=== PATIENT | male | born 1970 | race Caucasian/White ===

== ENCOUNTER → 2016-09-21 | Outpatient (CLI) | payer BC ==
[~2016-09-21] MED LIST: MULT-506
--- NOTE | 2016-09-21 11:35 | DIAGNOSTIC IMAGING REPORT ---
(TESTICULAR) SCROTUM-CONT CLINICAL HISTORY: N50.811 right testicular pain COMPARISON STUDY: No previous studies for comparison. FINDINGS: The right testis measures 53 x 31 x 30 mm. The left testis measures 65 x 34 x 29 mm. No intratesticular masses are visualized. There is no evidence of testicular torsion. There are no findings to indicate epididymitis. There is a trace right-sided hydrocele. IMPRESSION: 1. No evidence of intratesticular mass 2. No evidence of testicular torsion. Electronically signed by: Beka Cordova M.D. 09/21/2016 11:33 AM Dictated Date/Time: 09/21/2016 11:33 AM
== END | disposition home or self-care (01) ==
LOC: C.ULTR 10:52
PROVIDERS: ATTEND Family Medicine
DX: N50.811 Right testicular pain (principal)

== ENCOUNTER 2021-11-13 09:45 | Inpatient (IN) ==
[2021-11-13] MEDS ORDERED: HYDROmorphone INJ 1 MG/ML SYRINGE IV STA (11:10)
[2021-11-13] MEDS ORDERED: dexAMETHasone**PF** 10 MG/ML VIAL IV ONE (11:10)
[2021-11-13] MEDS ORDERED: diazePAM 5 MG TABLET PO ONE ×2 (11:10→13:25)
[2021-11-13] MEDS ORDERED: KETOROLAC 30 MG/ML VIAL IV STA (11:10)
--- NOTE | 2021-11-13 11:13 | Emergency Department Note ---
Impression & Plan Acute radicular low back pain, Intractable back pain, Protrusion of lumbar intervertebral disc ED Provider Note CHIEF COMPLAINT: Right hip pain radiating into the right leg x1 week HISTORY OF PRESENT ILLNESS: Patient is a 51-year-old male who returns to the emergency department, this time by ambulance, for evaluation of right-sided hip/buttock pain radiating into the right leg. He was seen and evaluated here 6 days ago for the same complaint. He had slipped in the garden a day or so juan david or, which is what he thought was causing his symptoms. He was treated in the emergency department with IM Toradol and Decadron and discharged home on prednisone and oxycodone. He has completed the prednisone and has no additional oxycodone left, and his symptoms are getting worse. He is also tried ice and heat, Tylenol and Aleve for his symptoms. He complains primarily of a pain in the lateral aspect of the right hip that radiates toward the groin. At then radiates down the anterior thigh and to the top of his foot. He reports numbness in his foot and burning in his ankle, and some decrease sensation in the right thigh. He felt a tearing sensation in the right groin earlier today. He currently rates his discomfort an 8/10. Patient's reports that he was yelling and screaming in pain this morning. She had him in the car was going to try to bring him here by private vehicle but ultimately they elected to come by ambulance. He denies any bowel or bladder incontinence, but does report that it is difficult to sit on the toilet and has not had a bowel movement this week. He reports some numbness in his testicle region. He has never had the back evaluated previously. REVIEW OF SYSTEMS: Review of systems as per HPI. All other systems reviewed were negative. 10 systems reviewed. PMH: Electronic medical records are reviewed and summarized as above/below. See Problem List. Patient admittedly does not go to the doctor frequently however, does not have regular wellness exams. Sees [facility]. SOCIAL HISTORY: Patient lives at home with his family. He is employed in maintenance at [employer]. PHYSICAL EXAM: Vital Signs: Reviewed Nurse's notes. CONSTITUTIONAL: Patient is an overweight 51-year-old male who is awake and alert and in obvious distress due to his stated complaint. He is lying right lateral decubitus in the gurney. is at the bedside. There is significant discomfort with position changes. CARDIOVASCULAR: Regular rate and rhythm. Peripheral pulses easily palpable. RESPIRATORY: Breath sounds equal and clear to auscultation. ABDOMEN: Bowel sounds are present. Abdomen is soft, nontender and nondistended. INTEGUMENTARY: No lesions or rash, normal skin turgor. LYMPH: No lymphadenopathy. SPINE: Examination of the patient's back does not demonstrate any ecchymosis, abrasions or outward signs of trauma. No erythema, increased warmth or induration. Patient has no midline discomfort to palpation over lumbar spinous processes. There is no pain over the SI joint or the sciatic notch. He has increased pain with range of motion including rotation and flexion. EXTREMITIES: Leg lengths are symmetrical. Negative logroll bilaterally. He has decreased sensation to light touch over the right lower extremity when compared to the left. His strength to right ankle and great toe dorsiflexion/plantarflexion is 3/5, compared to 5/5 on the left. Positive right-sided straight leg raise testing. Patellar reflexes are 1+ bilaterally. EMERGENCY DEPARTMENT COURSE: The patient was seen and assessed as above. Old records were reviewed. He presents the emergency department for evaluation of severe right-sided lumbar radiculopathy. He has completed a course of steroids and his symptoms are worsening. He had minimal relief with oxycodone over the last week. IV lock was initiated. He was treated with Dilaudid 1 mg, Toradol 30 mg, Decadron 10 mg IV with Valium 5 mg p.o. CBC, BMP and urinalysis were ordered. Discussed performing an MRI with the patient. Ultimately, he was able to do so. He did need an additional dose of Dilaudid 0.5 mg and Valium 5 mg p.o. at MRI to complete the studies. Labs are unremarkable. MRI is concerning for disc protrusion at the L4-L5 level resulting in severe r ight-sided neuroforaminal stenosis. I was able to review the patient's MRI findings with orthopedic spine surgery, Dr. Alcantara. He would like to evaluate the patient and review the MRI tomorrow. He felt that admission for pain management was reasonable. I did discuss the MRI findings and recommendations with the patient and his and they were in agreement. Patient is feeling much improved with the medications that he received, he rated his discomfort a 4/10. Consultation was placed with the [facility] hospitalist group for further care and management. A COVID swab was obtained for admitting purposes. Differential diagnoses entertained included disc herniation, lumbar radiculo alejandrina, spinal stenosis, acute cord compression, spinous syndrome, epidural abscess, hematoma, discitis, among others. Past Med/Surg History Medical History No acute medical problems Surgical History No pertinent past surgical history Social History Smoking Status: Never smoker Preferred Language: French Feels Safe at Home: Yes Allergies Allergies Allergy/AdvReac Type Severity Reaction Status Date / Time No Known Allergies Allergy NKA Unverified 11/07/21 23:21 Home Meds Previous Rx's Medication Instructions Recorded oxycodone 5 mg tablet 5 mg PO Q6H PRN pain #10 tabs 11/07/21 Results & Data (ED) Vital Signs Vital Signs - 24 hr 11/13/21 09:49 11/13/21 11:29 11/13/21 12:18 Temperature 36.8 C Temperature Source Oral Pulse Rate 69 Pulse Rate [Left Finger] 86 63 Pulse Rhythm Regular Pulse Rhythm [Left Finger] Regular Pulse Strength Normal Pulse Strength [Left Finger] Normal Respiratory Rate 19 20 20 Respiratory Effort / Characteristics Non-Labored Non-Labored Spontaneous Non-Labored Spontaneous Respiratory Depth Normal Normal Normal Respiratory Pattern Regular Blood Pressure 145/83 H Blood Pressure [Right Arm] 139/85 Blood Pressure Mean 103 Blood Pressure Mean [Right Arm] 103 Blood Pressure Position Lying Blood Pressure Position [Right Arm] Pulse Oximetry 98 98 92 Oxygen Delivery Method Room Air Room Air Room Air Sepsis Recent Fever Within 48 Hours No Sepsis New/Unexplained Change in Mental Status No Sepsis Action Taken by Nursing No Action Required 11/13/21 14:05 Temperature Temperature Source Pulse Rate Pulse Rate [Left Finger] 70 Pulse Rhythm Pulse Rhythm [Left Finger] Regular Pulse Strength Pulse Strength [Left Finger] Normal Respiratory Rate 20 Respiratory Effort / Characteristics Non-Labored Spontaneous Respiratory Depth Normal Respiratory Pattern Blood Pressure Blood Pressure [Right Arm] 142/78 H Blood Pressure Mean Blood Pressure Mean [Right Arm] 99 Blood Pressure Position Blood Pressure Position [Right Arm] Lying Pulse Oximetry 92 Oxygen Delivery Method Room Air Sepsis Recent Fever Within 48 Hours Sepsis New/Unexplained Change in Mental Status Sepsis Action Taken by Intermediate Medications Current Medication List: was personally reviewed by me Laboratory Data Attestation: I reviewed the patient's lab results. Result diagrams: 11/13/21 11:27 11/13/21 11:27 Lab Results 11/13/21 11/13/21 Range/Units 11: 11: WBC 12.19 H (4.8-10.8) K/ul RBC 5.45 (4.63-6.08) M/uL Hgb 16.6 (14.0-18.0) g/dl Hct 48.1 (40.1-51.0) % MCV 88.3 (80.0-100.0) fL MCH 30.5 (25.0-34.0) pg MCHC 34.5 (32.0-36.0) g/dL RDW Std Deviation 41.1 (36.4-46.3) fL RDW Coeff of Bianca 12.8 (11.5-14.5) % Plt Count 243 (130-400) K/uL MPV 10.4 (9.4-12.4) fL Sodium 138 (136-145) mmol/L Potassium 4.0 (3.5-5.1) mmol/L Chloride 98 (98-107) mmol/L Carbon Dioxide 31 (21-32) mmol/L Anion Gap 9 (3-11) BUN 21 (6-23) mg/dl Creatinine 0.96 (0.6-1.4) mg/dl Est Cr Clr Drug Dosing 144.0 ml/min Est GFR ( Amer) 104.2 ml/min Est GFR (Non-Af Amer) 89.9 ml/min BUN/Creatinine Ratio 21.9 H (10-20) Glucose 102 H (70-99(Fasting)) mg/dl Calcium 9.7 (8.5-10.1) mg/dl Administered Medications Discontinued Medications Dexamethasone Sodium Phosphate (DexamethasonePf 10 Mg/Ml Vial) 10 mg IV NOW ONE Stop: 11/13/21 11:11 Last Admin: 11/13/21 11:21 Dose: 10 mg Documented By: TW Diazepam (Diazepam 5 Mg Tablet) 5 mg PO NOW ONE Stop: 11/13/21 11:11 Last Admin: 11/13/21 11:21 Dose: 5 mg Documented By: TW Diazepam (Diazepam 5 Mg Tablet) 5 mg PO NOW ONE Stop: 11/13/21 13:26 Last Admin: 11/13/21 14:05 Dose: 5 mg Documented By: TW Hydromorphone HCl (Hydromorphone Inj 1 Mg/Ml Syringe) 1 mg IV NOW STA Stop: 11/13/21 11:11 Last Admin: 11/13/21 11:22 Dose: 1 mg Documented By: TW Hydromorphone HCl (Hydromorphone Inj 0.5 Mg/0.5 Ml Syr) 0.5 mg IV NOW STA Stop: 11/13/21 13:26 Last Admin: 11/13/21 13:48 Dose: 0.5 mg Documented By: TW Ketorolac Tromethamine (Ketorolac 30 Mg/Ml Vial) 30 mg IV NOW STA Stop: 11/13/21 11:11 Last Admin: 11/13/21 11:21 Dose: 30 mg Documented By: KAMAR Imaging Data Attestation: I personally reviewed and interpreted this imaging study as follows: Radiologist's Impression: Lumbar Spine MRI 11/13/21 11:11 MR lumbar spine wo con CLINICAL HISTORY: 51 years-old Male with RIGHT LUMBAR RADICULOPATHY. Acute low back pain with numbness and tingling of the right lower extremity COMPARISON: None. TECHNIQUE: Multiplanar, multi sequence MRI of the lumbar spine was performed without intravenous contrast. FINDINGS: It Network Architect localizer images demonstrate no gross extraspinal abnormality. Study is motion degraded. Imaged paraspinal and imaged intra-abdominal structures appear unremarkable. Conus medullaris terminates at the L1 level. No acute fracture, subluxation, endplate erosion or marrow replacing process identified. Minimal soft tissue edema adjacent to the L4-L5 facets, likely degenerative. There is mostly mild multilevel disc space narrowing and spondylitic spurring with [id number] facet arthrosis. T12-L1: No central canal or neural foraminal stenosis. L1-L2: No central canal or neural foraminal stenosis. L2-L3: No central canal or neural foraminal stenosis. L3-L4: Small circumferential annular disc bulge with spondylitic spurring. Ligamentum flavum thickening with moderate facet arthrosis. There is a least mild narrowing of the lateral recesses. Flattening of the ventral thecal sac without significant central canal stenosis. Mild to moderate bilateral neural foraminal narrowing. L4-L5: Small circumferential annular disc bulge. Posterior annular fissure with ligamentum flavum thickening and moderate facet arthrosis. Flattening of the ventral thecal sac without significant central canal stenosis. There is at least mild narrowing of the lateral recesses. There is suggestion of a superimposed right foraminal disc protrusion seen best on the sagittal images. Mild to moderate left with severe right neural foraminal narrowing. L5-S1: Small posterior annular disc bulge. Ligamentum flavum thickening with moderate facet arthrosis. Mild right with [id number] left neural foraminal narrowing. IMPRESSION: 1. Motion degraded exam. 2. Discogenic degeneration with facet arthrosis as above. 3. Posterior annular disc bulge with annular fissure and superimposed right foraminal disc protrusion at L4-L5 results in severe right-sided neural foraminal stenosis. 4. No significant central canal narrowing. ACT 112: Negative or not required by law. The above report was generated using voice recognition software. It may contain grammatical, syntax or spelling errors. Electronically signed by: Tommy Crespo M.D. 11/13/2021 2:51 PM Discharge Plan Visit Data Chief Complaint: Hip Pain Stated Complaint: pain ED Provider: Natalie Webber ED Midlevel Provider: Jailene Mcgrath Discharge Problem: Acute radicular low back pain, Intractable back pain, Protrusion of lumbar intervertebral disc Patient Disposition: Being Evaluated by Hospitalist Forms Stand Alone Forms: [employer] Prescriptions Prescriptions: No Action oxycodone 5 mg tablet 5 mg PO Q6H PRN (Reason: pain) Qty: 10 0RF Rx Instructions: Initial Treatment Referrals Referrals: PCP,NO [Primary Care Provider] -
[2021-11-13 11:43] LABS: Hematocrit (blood only) 48.1 % (40.1-51.0); Hemoglobin 16.6 g/dl (14.0-18.0); Mean Corpuscular Hemoglobin 30.5 pg (25.0-34.0); Mean Corpuscular Hgb Conc 34.5 g/dL (32.0-36.0); Mean Corpuscular Volume 88.3 fL (80.0-100.0); Mean Platelet Volume 10.4 fL (9.4-12.4); Platelet Count 243 K/uL (130-400); RDW Coefficient of Variation 12.8 % (11.5-14.5); RDW Standard Deviation 41.1 fL (36.4-46.3); Red Blood Count 5.45 M/uL (4.63-6.08); White Blood Count 12.19 K/ul (4.8-10.8)
[2021-11-13 12:10] LABS: BUN Creatinine Ratio 21.9 (10-20); Calcium 9.7 mg/dl (8.5-10.1); Est GFR (African American) 104.2 ml/min; Est GFR (Non-African American) 89.9 ml/min
[2021-11-13] MEDS ORDERED: HYDROmorphone INJ 0.5 MG/0.5 ML SYR IV STA (13:25)
--- NOTE | 2021-11-13 14:54 | Magnetic Resonance Report ---
MR lumbar spine wo con CLINICAL HISTORY: 51 years-old Male with RIGHT LUMBAR RADICULOPATHY. Acute low back pain with numbne ss and tingling of the right lower extremity COMPARISON: None. TECHNIQUE: Multiplanar, multi sequence MRI of the lumbar spine was performed without intravenous cont rast. FINDINGS: Fish Hatchery Supervisor localizer images demonstrate no gross extraspinal abnormality. Study is motion degrad ed. Imaged paraspinal and imaged intra-abdominal structures appear unremarkable. Conus medullaris ter minates at the L1 level. No acute fracture, subluxation, endplate erosion or marrow replacing process identified. Minimal soft tissue edema adjacent to the L4-L5 facets, likely degenerative. There is mo stly mild multilevel disc space narrowing and spondylitic spurring with apav-rf-zahobqwj facet arthro sis. T12-L1: No central canal or neural foraminal stenosis. L1-L2: No central canal or neural foraminal stenosis. L2-L3: No central canal or neural foraminal stenosis. L3-L4: Small circumferential annular disc bulge with spondylitic spurring. Ligamentum flavum thicken ing with moderate facet arthrosis. There is a least mild narrowing of the lateral recesses. Flattenin g of the ventral thecal sac without significant central canal stenosis. Mild to moderate bilateral ne ural foraminal narrowing. L4-L5: Small circumferential annular disc bulge. Posterior annular fissure with ligamentum flavum th ickening and moderate facet arthrosis. Flattening of the ventral thecal sac without significant centr al canal stenosis. There is at least mild narrowing of the lateral recesses. There is suggestion of a superimposed right foraminal disc protrusion seen best on the sagittal images. Mild to moderate left with severe right neural foraminal narrowing. L5-S1: Small posterior annular disc bulge. Ligamentum flavum thickening with moderate facet arthrosis . Mild right with [id number] left neural foraminal narrowing. IMPRESSION: 1. Motion degraded exam. 2. Discogenic degeneration with facet arthrosis as above. 3. Posterior annular disc bulge with annular fissure and superimposed right foraminal disc protrusion at L4-L5 results in severe right-sided neural foraminal stenosis. 4. No significant central canal narrowing. ACT 112: Negative or not required by law. The above report was generated using voice recognition software. It may contain grammatical, syntax o r spelling errors. Electronically signed by: Tommy Crespo M.D. 11/13/2021 2:51 PM
--- NOTE | 2021-11-13 16:04 | History & Physical Report ---
Date of Service November 13, 2021 Assessment & Plan (1) Intractable back pain: Plan: Acute right low back pain MRI: 1. Motion degraded exam. 2. Discogenic degeneration with facet arthrosis as above. 3. Posterior annular disc bulge with annular fissure and superimposed right foraminal disc protrusion at L4-L5 results in severe right-sided neural foraminal stenosis. 4. No significant central canal narrowing. -Pain radiating down right leg through the thigh into the top of the foot with decreased sensation to soft touch and diminished dorsiflexion/plantarflexion. Unable to complete hip flexion while lying in bed due to pain Orthospine consulted, reviewed with Dr. Alcantara. Admit to medicine, will see in the morning. We will continue prednisone, Tylenol, scaled hydromorphone for breakthrough. Received Toradol 30 mg, will hold on additional dosing at this time. N.p.o. at midnight pending surgical eval SCDs, defer pharmacal prophylaxis pending spine eval Denies any chronic medical problems including diabetes, heart disease, lung disease. Denies family history of early cardiac problems, DM. Denies any chronic/prescription home medication use Diet: N.p.o. at midnight DVT prophylaxis: SCDs CODE STATUS: Full code (2) Acute radicular low back pain: (3) Sciatica: (4) Protrusion of lumbar intervertebral disc: History of Present Illness Primary Care Provider: NO PCP Shreyas is a 51-year-old male with a history of sciatica who presents with intractable back pain radiating into his right leg. Did have a fall preceding symptoms 1 week ago, and was seen in ER and treated with IM Toradol and Decadron. Progressively worsening symptoms despite ice, heat, Tylenol, and Aleve with pain radiating through his thigh to the top of his foot. 10/10 pain this morning which was some to cry out to his . MRI shows L4-L5 severe neuroforaminal stenosis. Case was reviewed with Dr. Alcantara who recommended admission to medical service, and orthospine follow-up tomorrow morning. 1 week ago was picking tomatoes and twisted wrong and felt a strong 'pop'. No fall, but had progressively worsening back pain since. Couldn't get comfortable. Sunday night went to the ER for pain, treated as above, +oxy/steroids for sciatica from ER. DId notice diminished sensation and progressively worsening strength in his R distal leg, pain limits hip flexion andmotion. 8-10/10 pain in general, not helped much from tylenol, naproxen, oxycodone. Pain goes from back through R leg and him, into the top of his foot with a sharp shooting quality and persistent achy back pain. Peeing normally, no retention/overflow/incontinence BMs normal Diminished sensation in R leg FHX: Denies fhx early ID, strokes, DM Medical History: Reviewed, denies med hx. Medications: Reviewed. Denies prescription meds. Surgical History: Reviewed, no hx surgery Allergies: Reviewed. NKMA. Social History: Occasional snuff use, none in the last 2-3 weeks. Denies Etoh, rec drug use. Code Status: Surrogate DM would be . Full Code. Allergies Allergy/AdvReac Type Severity Reaction Status Date / Time No Known Allergies Allergy NKA Unverified 11/07/21 23:21 Home Medications Medication Instructions Recorded Confirmed Type oxycodone 5 mg tablet 5 mg PO Q6H PRN pain #10 tabs 11/07/21 Rx Past Med/Surg History Medical History No acute medical problems Surgical History No pertinent past surgical history Social History Smoking Status: Never smoker Preferred Language: Polish Feels Safe at Home: Yes Review of Systems Review of Systems: All systems reviewed & are unremarkable except as noted in Subjective Physical Exam Physical Exam: General: A&Ox3. NAD. Cooperative. HEENT: Atraumatic, normocephalic. Pulm: CTAB A&P. -wheezes, -rales, -rhonchi. Symmetrical chest rise. No increase in work of breathing. No respiratory distress. Cardiac: RRR, -mrg. Radial pulses intact and symmetrical. Abdominal: Nontender, nondistended, soft. BS present. Extremities: Right lower extremity with severe pain on attempted resisted hip flexion. Right ankle dorsiflexion/plantar flexion 4-/5. Left ankle dorsiflexion/plantar flexion and hip flexion 5/5. No saddle anesthesia. Station of soft touch qualitatively diminished although grossly intact in right lower extremity Results & Data Results & Data ([facility]) Vital Signs (Past 12 Hours) Vital Signs Temp Pulse Pulse Resp BP BP Pulse Ox 11/13/21 14:05 70 20 142/78 H 92 11/13/21 12:18 63 20 92 11/13/21 11:29 86 20 139/85 98 11/13/21 09:49 36.8 C 69 19 145/83 H 98 O2 Del Method 11/13/21 14:05 Room Air 11/13/21 12:18 Room Air 11/13/21 11:29 Room Air 11/13/21 09:49 Room Air PG Care Time/CCT Total # of Minutes Spent Total Time Spent with Patient: Total time spent is greater than 50% in coordination of care (as documented) at patient's floor/unit and/or counseling patient: Coding Level of Care Code 86270 Initial Inpt Care Lvl 2 Diagnoses Intractable back pain M54.9 Acute radicular low back pain M54.16 Sciatica M54.31 Laterality: right Protrusion of lumbar intervertebral disc M51.26 (1) Sciatica Laterality: right Qualified Code(s): M54.31 - Sciatica, right side
[2021-11-13 16:37] LABS: Appearance Urine Clear (Clear); Bilirubin Urine Negative (Negative); Blood Urine Negative (Negative); Color Urine Yellow; Glucose Urine UA Negative (Negative); Ketones Urine Trace (Negative); Leukocyte Esterase Urine Negative (Negative); Nitrite Urine Negative (Negative); Protein Urine Negative (Negative); Specific Gravity Urine 1.019 (1.000-1.030); Urobilinogen Urine Negative (Negative); pH Urine 6.5 (4.5-7.5)
[2021-11-13] MEDS ORDERED: HYDROmorphone INJ 1 MG/ML SYRINGE IV PRN (17:58)
[2021-11-13] MEDS ORDERED: ACETAMINOPHEN 325 MG TAB PO PRN (17:58)
[2021-11-13] MEDS ORDERED: HYDROmorphone INJ 0.5 MG/0.5 ML SYR IV PRN (17:58)
[2021-11-13] MEDS ORDERED: LACTATED RINGER'S 1,000 ML IV SCH (23:30)
[2021-11-14] MEDS: dexAMETHasone 4 MG TAB PO SCH (07:32)
--- NOTE | 2021-11-14 08:35 | Hospitalist Progress Note ---
Date of Service November 14, 2021 Assessment & Plan (1) Lumbar disc herniation with radiculopathy: Plan: Acute right low back pain following twisting/"pop" when picking tomatoes last week MRI with Posterior annular disc bulge with annular fissure and superimposed right foraminal disc protrusion at L4-L5 results in severe right-sided neural foraminal stenosis Given decadron 10mg x1, hydromorphine 1mg IV x 2, toradol 30mg IVx1, valium x2, in ER Ortho spine consulted no surgery today given schedule, making NPO at midnight LR ordered initially, discontinue for now as no longer NPO Continue decadron 10mg daily Pain control-- hydromorphone, tylenol prn added baclofen and oxycodone for PO options Bowel regimen -- admitted 2BM last evening on admit Added miralax BID, senna/docusate. States no issues with BMs at baseline PT/OT consulted SCDs for DVT prophylaxis NPO for midnight for possible surgery Denies any chronic medical problems including diabetes, heart disease, lung disease. Denies family history of early cardiac problems, DM. Denies any chronic/prescription home medication use (2) Protrusion of lumbar intervertebral disc: Plan: as above, secondary to twisting pain control, NPO at midnight plan for OR in AM (3) Intractable back pain: Plan: controlled currently with ordered medications (4) Acute radicular low back pain: (5) Sciatica: (6) Neuropathy: Plan: reported neuropathy checked B12 for completeness --> low normal 287 will order IM while inpatient, continue PO at discharge PT/OT consulted for above Plan ordered diet for today, NPO after midnight for surgery with Dr Alcantara in AM Admission and Anticipated Discharge Date Admission Date: November 13, 2021 Subjective Patient evaluated this morning. Had been picking tomatoes from garden and twisted and felt a pop and numbness/tingling down his leg. Had been attempting control at home for the past week. Pain controlled with ordered medications. Numbness to his right lower extremity with neuropathy and radiculopathy to the anterior matta into the foot. Discussed Dr Alcantara not likely to do surgery today and will order diet and make NPO after midnight. He stated Dr Alcantara was just in. To use IV/Po pain medication for control. NPO at midnight. No CP/SOb, moved his bowels twice. Ambulating slowly with walker and pain control. Attempted to go have BM this morning (reports no issues) but didn't want to sit too long due to pain and currently back in bed. Encourgaed bowel regimen and if having increased pain to alert nursing. Would like ot get bowels moving again prior to surgery. Questions/concerns addressed at this time. Review of Systems Review of Systems: All systems reviewed & are unremarkable except as noted in HPI & below Physical Exam Physical Exam: General: WD/WN obese male sitting in bed, laying supine but in left lateral decubitus position initially, NAD but minimally uncomfortable appearing HEENT: normocephalic, atraumatic, mmm, trachea midline without deviaiton Resp: CTAB, diminished in bases, on room air CV: RRR, no m/r/g, pulses palpable GI: +BS, distended, no guarding/rigidity : no bourgeois MSK/Neuro: moves all extremities, follows commands, speech clear, no facial droop, increased pain with straight leg on the right hypersensitive to light touch anterior RLE compared to the left, no increased calf swelling.decreased dorsiflexion/plantar flexion on the right compared to the left, 4/5 strength R>L, no saddle paresthesia Psych: AOx3, pleasant and cooperative Results & Data Results & Data ([facility]) Vital Signs (Past 12 Hours) Vital Signs Temp Pulse Resp BP Pulse Ox O2 Del Method 11/14/21 07:34 36.7 C 75 18 152/79 H 98 Room Air 11/13/21 21:15 Room Air 11/13/21 22:29 36.8 C 83 18 151/76 H 95 Room Air Laboratory Results 11/14/21 11/14/21 11/14/21 Range/Units 09:02 09:02 09:02 WBC 13.97 H (4.8-10.8) K/ul RBC 5.44 (4.63-6.08) M/uL Hgb 16.5 (14.0-18.0) g/dl Hct 47.9 (40.1-51.0) % MCV 88.1 (80.0-100.0) fL MCH 30.3 (25.0-34.0) pg MCHC 34.4 (32.0-36.0) g/dL RDW Std Deviation 41.2 (36.4-46.3) fL RDW Coeff of Bianca 12.8 (11.5-14.5) % Plt Count 250 (130-400) K/uL MPV 10.4 (9.4-12.4) fL Sodium 138 (136-145) mmol/L Potassium 4.3 (3.5-5.1) mmol/L Chloride 102 (98-107) mmol/L Carbon Dioxide 28 (21-32) mmol/L Anion Gap 8 (3-11) BUN 19 (6-23) mg/dl Creatinine 0.78 (0.6-1.4) mg/dl Est Cr Clr Drug Dosing 177.3 ml/min Est GFR ( Amer) 119.4 ml/min Est GFR (Non-Af Amer) 103.1 ml/min BUN/Creatinine Ratio 24.4 H (10-20) Glucose 118 H (70-99(Fasting)) mg/dl Calcium 9.4 (8.5-10.1) mg/dl Magnesium 2.1 (1.7-2.4) mg/dl Vitamin B12 287 (180-914) pg/ml Urine Color Urine Appearance (Clear) Urine pH (4.5-7.5) Ur Specific [place] (1.000-1.030) Urine Protein (Negative) Urine Glucose (UA) (Negative) Urine Ketones (Negative) Urine Blood (Negative) Urine Nitrite (Negative) Urine Bilirubin (Negative) Urine Urobilinogen (Negative) Ur Leukocyte Esterase (Negative) SARS-CoV-2, RNA, NAAT (NEGATIVE) 11/13/21 11/13/21 11/13/21 Range/Units 16:30 16:10 11:27 WBC (4.8-10.8) K/ul RBC (4.63-6.08) M/uL Hgb (14.0-18.0) g/dl Hct (40.1-51.0) % MCV (80.0-100.0) fL MCH (25.0-34.0) pg MCHC (32.0-36.0) g/dL RDW Std Deviation (36.4-46.3) fL RDW Coeff of Bianca (11.5-14.5) % Plt Count (130-400) K/uL MPV (9.4-12.4) fL Sodium 138 (136-145) mmol/L Potassium 4.0 (3.5-5.1) mmol/L Chloride 98 (98-107) mmol/L Carbon Dioxide 31 (21-32) mmol/L Anion Gap 9 (3-11) BUN 21 (6-23) mg/dl Creatinine 0.96 (0.6-1.4) mg/dl Est Cr Clr Drug Dosing 144.0 ml/min Est GFR ( Amer) 104.2 ml/min Est GFR (Non-Af Amer) 89.9 ml/min BUN/Creatinine Ratio 21.9 H (10-20) Glucose 102 H (70-99(Fasting)) mg/dl Calcium 9.7 (8.5-10.1) mg/dl Magnesium (1.7-2.4) mg/dl Vitamin B12 (180-914) pg/ml Urine Color Yellow Urine Appearance Clear (Clear) Urine pH 6.5 (4.5-7.5) Ur Specific [place] 1.019 (1.000-1.030) Urine Protein Negative (Negative) Urine Glucose (UA) Negative (Negative) Urine Ketones Trace H (Negative) Urine Blood Negative (Negative) Urine Nitrite Negative (Negative) Urine Bilirubin Negative (Negative) Urine Urobilinogen Negative (Negative) Ur Leukocyte Esterase Negative (Negative) SARS-CoV-2, RNA, NAAT NEGATIVE (NEGATIVE) 11/13/21 Range/Units 11:27 WBC 12.19 H (4.8-10.8) K/ul RBC 5.45 (4.63-6.08) M/uL Hgb 16.6 (14.0-18.0) g/dl Hct 48.1 (40.1-51.0) % MCV 88.3 (80.0-100.0) fL MCH 30.5 (25.0-34.0) pg MCHC 34.5 (32.0-36.0) g/dL RDW Std Deviation 41.1 (36.4-46.3) fL RDW Coeff of Bianca 12.8 (11.5-14.5) % Plt Count 243 (130-400) K/uL MPV 10.4 (9.4-12.4) fL Sodium (136-145) mmol/L Potassium (3.5-5.1) mmol/L Chloride (98-107) mmol/L Carbon Dioxide (21-32) mmol/L Anion Gap (3-11) BUN (6-23) mg/dl Creatinine (0.6-1.4) mg/dl Est Cr Clr Drug Dosing ml/min Est GFR ( Amer) ml/min Est GFR (Non-Af Amer) ml/min BUN/Creatinine Ratio (10-20) Glucose (70-99(Fasting)) mg/dl Calcium (8.5-10.1) mg/dl Magnesium (1.7-2.4) mg/dl Vitamin B12 (180-914) pg/ml Urine Color Urine Appearance (Clear) Urine pH (4.5-7.5) Ur Specific [place] (1.000-1.030) Urine Protein (Negative) Urine Glucose (UA) (Negative) Urine Ketones (Negative) Urine Blood (Negative) Urine Nitrite (Negative) Urine Bilirubin (Negative) Urine Urobilinogen (Negative) Ur Leukocyte Esterase (Negative) SARS-CoV-2, RNA, NAAT (NEGATIVE) Diagnostic Findings Lumbar Spine MRI 11/13/21 11:11 MR lumbar spine wo con CLINICAL HISTORY: 51 years-old Male with RIGHT LUMBAR RADICULOPATHY. Acute low back pain with numbness and tingling of the right lower extremity COMPARISON: None. TECHNIQUE: Multiplanar, multi sequence MRI of the lumbar spine was performed without intravenous contrast. FINDINGS: Wire Border Assembler localizer images demonstrate no gross extraspinal abnormality. Study is motion degraded. Imaged paraspinal and imaged intra-abdominal structures appear unremarkable. Conus medullaris terminates at the L1 level. No acute fracture, subluxation, endplate erosion or marrow replacing process identified. Minimal soft tissue edema adjacent to the L4-L5 facets, likely degenerative. There is mostly mild multilevel disc space narrowing and spondylitic spurring with [id number] facet arthrosis. T12-L1: No central canal or neural foraminal stenosis. L1-L2: No central canal or neural foraminal stenosis. L2-L3: No central canal or neural foraminal stenosis. L3-L4: Small circumferential annular disc bulge with spondylitic spurring. Ligamentum flavum thickening with moderate facet arthrosis. There is a least mild narrowing of the lateral recesses. Flattening of the ventral thecal sac without significant central canal stenosis. Mild to moderate bilateral neural foraminal narrowing. L4-L5: Small circumferential annular disc bulge. Posterior annular fissure with ligamentum flavum thickening and moderate facet arthrosis. Flattening of the ventral thecal sac without significant central canal stenosis. There is at least mild narrowing of the lateral recesses. There is suggestion of a superimposed right foraminal disc protrusion seen best on the sagittal images. Mild to moderate left with severe right neural foraminal narrowing. L5-S1: Small posterior annular disc bulge. Ligamentum flavum thickening with moderate facet arthrosis. Mild right with [id number] left neural foraminal narrowing. IMPRESSION: 1. Motion degraded exam. 2. Discogenic degeneration with facet arthrosis as above. 3. Posterior annular disc bulge with annular fissure and superimposed right foraminal disc protrusion at L4-L5 results in severe right-sided neural foraminal stenosis. 4. No significant central canal narrowing. ACT 112: Negative or not required by law. The above report was generated using voice recognition software. It may contain grammatical, syntax or spelling errors. Electronically signed by: Tommy Crespo M.D. 11/13/2021 2:51 PM PG Care Time/CCT Total # of Minutes Spent Total Time Spent with Patient: Total time spent is greater than 50% in coordination of care (as documented) at patient's floor/unit and/or counseling patient: Coding Level of Care Code 35088 Subseq Hosp Care Lvl 3 Diagnoses Lumbar disc herniation with radiculopathy M51.16 Protrusion of lumbar intervertebral disc M51.26 Intractable back pain M54.9 Acute radicular low back pain M54.16 Sciatica M54.31 Laterality: right Neuropathy G62.9 (1) Sciatica Laterality: right Qualified Code(s): M54.31 - Sciatica, right side
[2021-11-14 09:32] LABS: Hematocrit (blood only) 47.9 % (40.1-51.0); Hemoglobin 16.5 g/dl (14.0-18.0); Mean Corpuscular Hemoglobin 30.3 pg (25.0-34.0); Mean Corpuscular Hgb Conc 34.4 g/dL (32.0-36.0); Mean Corpuscular Volume 88.1 fL (80.0-100.0); Mean Platelet Volume 10.4 fL (9.4-12.4); Platelet Count 250 K/uL (130-400); RDW Coefficient of Variation 12.8 % (11.5-14.5); RDW Standard Deviation 41.2 fL (36.4-46.3); Red Blood Count 5.44 M/uL (4.63-6.08); White Blood Count 13.97 K/ul (4.8-10.8)
[2021-11-14 09:57] LABS: BUN Creatinine Ratio 24.4 (10-20); Calcium 9.4 mg/dl (8.5-10.1); Creatinine Clr Calc Pharmacy 177.3 ml/min; Est GFR (African American) 119.4 ml/min; Est GFR (Non-African American) 103.1 ml/min; Magnesium 2.1 mg/dl (1.7-2.4); Potassium 4.3 mmol/L (3.5-5.1)
--- NOTE | 2021-11-14 10:21 | Orthopedic Consultation ---
Date of Consultation November 14, 2021 Assessment & Plan (1) Lumbar disc herniation with radiculopathy: Assessment lumbar spinal stenosis with foraminal disc herniation and radiculopathy with neurodeficit. Plan we will discuss today with the patient reviewing his MRI findings and clinical presentation. MRI does have evidence of central lumbar spinal stenosis L4-L5 with an acute foraminal disc herniation on the right with significant encroachment of the exiting L4 nerve root. At this point he is markedly incapacitated secondary to pain. He does get some relief with the IV pain medications. We discussed treatment options which include injections versus possible surgical intervention. In light of his severe pain and the pattern of neural compression surgery is warranted. It would require a complete facetectomy to safely access the nerve root at L4-5 on the left subsequently requiring fusion. Subsequently recommend a lumbar decompression fusion L4-L5. Risk benefits pros cons alternatives were outlined in detail. Risk include but not limited to anesthesia blindness stroke paralysis nerve damage blood loss requiring transfusion infection requiring reoperation benefits hopefully marked improvement of his pain and in time improvement of his strength deficit. At this time we will proceed with surgery soon as possible in light of his presentation. History of Present Illness Reason for Consultation: Right leg pain with weakness Attending Physician: Jarred Baires History of Present Illness This is a 51-year-old male who presents the emergency room last evening with worsening back and right leg pain. He has been unable to ambulate secondary to pain. He describes pain rating down to his foot that is hypersensitive in nature. He notes quad weakness and inability to stand on the right leg. Left lower extremity is asymptomatic. The symptoms began approximately a week ago he was working in his garden felt a pop in his back. He has been progressive since. His this would be his second trip to the emergency room. He is requiring IV narcotics to control his pain. He did attempt to session of physical therapy today but found incapacitating secondary to this pain. Allergies Allergy/AdvReac Type Severity Reaction Status Date / Time No Known Allergies Allergy NKA Unverified 11/13/21 16:25 Home Medications Medication Instructions Recorded Confirmed Type No Known Home Medications 11/13/21 11/13/21 History Patient History Medical History No acute medical problems Surgical History No pertinent past surgical history Social History Smoking Status: Never smoker Hx Alcohol Use: No Hx Substance Use: No Preferred Language: Salvadorean Communication Ability: Effective Systems Test Analyst Required: No Beliefs That Will Affect Care: None Current Living Situation: Spouse Other Information That Helps Us Care for You: No Feels Safe at Home: Yes Safety Concerns: Feels Safe At This Time Physical Exam Physical Exam: On exam is comfortable lying supine in the left lateral decubitus position. Exhibits plus out of 5 left plantar flexion dorsiflexion quadriceps on the right he has a 4+ or 5 right dorsiflexion since houses longus and a 4/5 quadriceps. He is hypersensitive to even light touch to the right lower extremity compared to the left. Cold sensation is diminished. He is severe tension signs on the right compared to left. Deep tendon reflexes diminished. Results & Data ([facility]) Vital Signs (Past 12 Hours) Vital Signs Temp Pulse Resp BP Pulse Ox O2 Del Method 11/14/21 07:34 36.7 C 75 18 152/79 H 98 Room Air 11/13/21 22:29 36.8 C 83 18 151/76 H 95 Room Air
[2021-11-14] MEDS ORDERED: oxyCODONE HCL IR 5 MG TAB (IMMEDIATE RELEASE) PO PRN (10:31)
[2021-11-14] MEDS ORDERED: BACLOFEN 10 MG TAB PO PRN (10:31)
[2021-11-14] MEDS: POLYETHYLENE (MIRALAX) 17 GM PACK PO SCH ×2 (11:27→21:24)
[2021-11-14] MEDS: DOCUSATE SODIUM/SENNA 50/8.6MG TAB PO SCH (11:27)
[2021-11-14] MEDS: CYANOCOBALAMIN 1000 MCG/ML VIAL IM SCH (11:27)
--- NOTE | 2021-11-14 17:51 | Anesthesiology Consultation ---
Date of Service November 14, 2021 Assessment & Plan (1) Encounter for pre-operative examination: Chart Review Chart Review: Acceptable Risk for Surgery and Patient NOT seen in Pre Admission Testing Consults Requested none History Surgery Operation Date: 11/15/21 09:35 Proposed Procedures p L4-L5 Decompression and Fusion - Hieu Alcantara DO Height/Weight Height: 6 ft 3 in Weight: 159.3 kg Allergies Allergy/AdvReac Type Severity Reaction Status Date / Time No Known Allergies Allergy NKA Unverified 11/13/21 16:25 Medications Home Medications Medication Instructions Recorded Confirmed Last Taken No Known Home Medications 11/13/21 11/13/21 Unknown Active Medications Generic Name Dose Route Start Last Admin Trade Name Freq PRN Reason Stop Dose Admin Cyanocobalamin 1,000 mcg 11/14/21 10:45 11/14/21 11:27 Cyanocobalamin 1000 Mcg/Ml Vial IM 11/16/21 09:01 1,000 mcg QAM CHELSIE Administration Dexamethasone 10 mg 11/14/21 09:00 11/14/21 07:32 Dexamethasone 4 Mg Tab PO 11/18/21 09:01 10 mg DAILY CHELSIE Administration Hydromorphone HCl 0.5 mg 11/13/21 17:58 11/14/21 11:29 Hydromorphone Inj 0.5 Mg/0.5 Ml Syr IV 11/27/21 17:57 0.5 mg Q4H PRN Administration Moderate Pain (4,5,6) on NRS Polyethylene Glycol 17 gm 11/14/21 10:45 11/14/21 11:27 Polyethylene (Miralax) 17 Gm Pack PO 12/14/21 10:44 Not Given BID CHELSIE Senna/Docusate Sodium 1 tab 11/14/21 10:45 11/14/21 11:27 Docusate Sodium/Senna 50/8.6mg Tab PO 12/14/21 10:44 1 tab QAM CHELSIE Administration NPO Date Last Intake of Fluids: 11/13/21 Time Last Intake of Fluids: 23:59 Date Last Intake of Solids: 11/14/21 Time Last Intake of Solids: 23:59 Past Medical History Medical History Morbid obesity Past Surgical History Surgical History No pertinent past surgical history Social History Smoking Status: Never smoker Hx Alcohol Use: No Hx Substance Use: No substance use type: does not use Physical Exam Vital Signs Last Vital Signs Temp 36.5 C 11/14/21 15:02 Pulse 83 11/14/21 15:02 Resp 18 11/14/21 15:02 BP 146/78 H 11/14/21 15:02 Pulse Ox 94 11/14/21 15:02 O2 Del Method 11/14/21 15:02 Testing Laboratory Results 11/14/21 09:02 11/14/21 09:02 Urine Color Yellow 11/13/21 16:30 Urine Appearance Clear (Clear) 11/13/21 16:30 Urine pH 6.5 (4.5-7.5) 11/13/21 16:30 Ur Specific [place] 1.019 (1.000-1.030) 11/13/21 16:30 Urine Protein Negative (Negative) 11/13/21 16:30 Urine Glucose (UA) Negative (Negative) 11/13/21 16:30 Urine Ketones Trace (Negative) H 11/13/21 16:30 Urine Nitrite Negative (Negative) 11/13/21 16:30 Ur Leukocyte Esterase Negative (Negative) 11/13/21 16:30 Electrocardiogram Date: 11/14/21 Findings: + NSR @ (83)
[2021-11-15] MEDS: POLYETHYLENE (MIRALAX) 17 GM PACK PO SCH (07:41)
[2021-11-15] MEDS: DOCUSATE SODIUM/SENNA 50/8.6MG TAB PO SCH ×2 (07:41→20:03)
[2021-11-15] MEDS: CYANOCOBALAMIN 1000 MCG/ML VIAL IM SCH (07:42)
--- NOTE | 2021-11-15 08:06 | History & Physical Bridge Note ---
Date of Service November 15, 2021 History & Physical Bridge Note I have examined the patient, reviewed the History & Physical and in the interval since the performance of the History & Physical I have noted the following changes of clinical significance: no changes noted Patient continues to have severe radiculopathy and progressive motor deficit. Recommending emergent decompression and fusion L4-5 and avoid permanent neurologic deficit.
--- NOTE | 2021-11-15 08:35 | Hospitalist Progress Note ---
Date of Service November 15, 2021 Assessment & Plan (1) Lumbar disc herniation with radiculopathy: Plan: Acute right low back pain following twisting/"pop" when picking tomatoes last week MRI with Posterior annular disc bulge with annular fissure and superimposed right foraminal disc protrusion at L4-L5 results in severe right-sided neural foraminal stenosis Ortho consulted s/p #1 lumbar decompression bilateral medial facetectomies and foraminotomies L3-L4 L4-5. #2 posterior spinal fusion L4-5 per #3 placed posterior instrumentation L4-L5. #4 interbody fusion L4-L5. #5 placement of Spira 15 x 26 mm L4-5. #6 placement locally harvested morselized autograft and posterior gutters. #7 placement of I factor combined with V toss interbody space and posterior gutters. with Dr Alcantara on 11/15 EBL 250cc Monitor ONEAL output Continue IVF/decadron post-op per Dr Alcantara Pain control/antiemetics prn Bowel regimen +BM 11/14 PT/OT consulted SCDs for DVT prophylaxis Labs in AM (2) Protrusion of lumbar intervertebral disc: Plan: as above, secondary to twisting/pop when picking tomatoes (3) Intractable back pain: Plan: controlled currently with ordered medications (4) Acute radicular low back pain: (5) Sciatica: (6) Neuropathy: Plan: reported neuropathy checked B12 for completeness --> low normal 287 IM ordered while inpatient, PO at discharge to be continued PT/OT consulted as above Plan continued inpatient stay monitor labs in AM PT/OT consulted Admission and Anticipated Discharge Date Admission Date: November 13, 2021 Subjective Attempted to see this morning but was taken down to OR about 20 minutes ago. 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 Discussed course, likely tomorrow worse in regards to pain but will have medications available and bowel regimen and have PT/OT evaluations and see how he does but likely discharge wouldn't be until . Seen post-op, in room 305. Tried some water, stated ordered clear liquids initially and will monitor/advance as tolerated. Patient lying flat in bed, reports pressure at site of incision but nothing for pain presently. No fever/chills, chest pain or shortness of breath. Last BM about 12 hours ago. Not yet been out of bed Wanting to know about urination, patient without Brock. Will ask aide to provide urinal. Review of Systems Review of Systems: All systems reviewed & are unremarkable except as noted in HPI & below Physical Exam Physical Exam: General: WD/WN obese male sitting in bed, NAD, just got back from PACu, sleepy HEENT: head normocephalic, atraumatic, mmm, trachea midline Resp: CTAB diminished in bases, on room air CV: RRR, no m/r/g, pulses palpable,SCDs in place, calves nontender GI: +BS, +Distended, nontender, no guarding : NO BROCK MSK/Neuro: follows commands, no focal deficit, strength intact b/l LE dorsiflexion/plantar flexion, equal (improved from yesterday) dressing c/d/i, ONEAL drain with bloody drainage ~50cc Psych: Alert but tired, oriented to person/place/event, cooperative Skin: warm, dry Results & Data Results & Data ([facility]) Vital Signs (Past 12 Hours) Vital Signs Temp Pulse Resp BP Pulse Ox O2 Del Method 11/15/21 08:00 Room Air 11/15/21 07:26 36.6 C 62 17 157/79 H 97 Room Air 11/14/21 22:57 36.7 C 75 18 157/92 H 95 Room Air Laboratory Results 11/15/21 11/14/21 Range/Units 07:58 20:37 Sodium 137 (136-145) mmol/L Potassium 4.3 (3.5-5.1) mmol/L Chloride 101 (98-107) mmol/L Carbon Dioxide 29 (21-32) mmol/L Anion Gap 7 (3-11) BUN 25 H (6-23) mg/dl Creatinine 0.76 (0.6-1.4) mg/dl Est Cr Clr Drug Dosing 181.9 ml/min Est GFR ( Amer) 120.7 ml/min Est GFR (Non-Af Amer) 104.2 ml/min BUN/Creatinine Ratio 32.9 H (10-20) Glucose 110 H (70-99(Fasting)) mg/dl Calcium 9.0 (8.5-10.1) mg/dl Magnesium 2.1 (1.7-2.4) mg/dl Blood Type O Positive Antibody Screen NEGATIVE Diagnostic Findings Lumbar Spine X-Ray 11/15/21 09:35 FL lumbar spine 2-3V CLINICAL HISTORY: L4-5 DFI TECHNIQUE: 2 views were obtained with the C-arm in the OR with the above procedure. Total fluoroscopy time was 7.5 seconds. Total skin dose was 41.86 mGy. Comparison: Comparison is made to MRI lumbar spine 11/13/2021 FINDINGS/IMPRESSION: Intraoperative images were obtained of L4-L5 decompression and fusion. Please correlate with intraoperative fluoroscopy and operative report. ACT 112: Negative or not required by law. Electronically signed by: Remi Judge M.D. 11/15/2021 1:11 PM PG Care Time/CCT Total # of Minutes Spent Total Time Spent with Patient: Total time spent is greater than 50% in coordination of care (as documented) at patient's floor/unit and/or counseling patient: Coding Level of Care Code 23048 Subseq Hosp Care Lvl 3 Diagnoses Lumbar disc herniation with radiculopathy M51.16 Protrusion of lumbar intervertebral disc M51.26 Intractable back pain M54.9 Acute radicular low back pain M54.16 Sciatica M54.31 Laterality: right Neuropathy G62.9 (1) Sciatica Laterality: right Qualified Code(s): M54.31 - Sciatica, right side
[2021-11-15 08:41] LABS: BUN Creatinine Ratio 32.9 (10-20); Creatinine Clr Calc Pharmacy 181.9 ml/min; Est GFR (African American) 120.7 ml/min; Est GFR (Non-African American) 104.2 ml/min; Magnesium 2.1 mg/dl (1.7-2.4); Potassium 4.3 mmol/L (3.5-5.1)
[2021-11-15] MEDS ORDERED: hydrALAZINE HCL 20 MG/ML VIAL IV PRN (08:56)
[2021-11-15] MEDS ORDERED: LACTATED RINGER'S 1,000 ML IV SCH (09:00)
[2021-11-15] MEDS ORDERED: SUCCINYLCHOLINE 100MG/5ML SYR IV ONE (09:01)
[2021-11-15] MEDS ORDERED: LIDOCAINE 2% MPF LOCAL 5 ML VIAL INFIL ONE (09:01)
[2021-11-15] MEDS ORDERED: PROPOFOL IV EMULSION 10 MG/ML 20 ML VIAL IV ONE (09:01)
[2021-11-15] MEDS ORDERED: ROCURONIUM BROMIDE 10 MG/ML 5 ML VIAL IV ONE (09:01)
[2021-11-15] MEDS ORDERED: DEXAMETHASONE SOD INJ 4 MG/ML VIAL ONE (09:01)
[2021-11-15] MEDS ORDERED: GLYCOPYRROLATE 0.2 MG/ML VIAL ONE (09:01)
[2021-11-15] MEDS ORDERED: ONDANSETRON INJ 2 MG/ML 2 ML VIAL ONE (09:01)
[2021-11-15] MEDS ORDERED: KETAMINE 50 MG/5 ML SYRINGE ONE (09:02)
[2021-11-15] MEDS ORDERED: fentaNYL citrate 100 MCG/2 ML VIAL ONE (09:02)
[2021-11-15] MEDS ORDERED: MIDAZOLAM HCL 1 MG/ML 2ML VIAL ONE ×2 (09:02→10:56)
[2021-11-15] MEDS ORDERED: ePHEDrine sulfate 50 MG/ML AMP IV PRN (09:46)
[2021-11-15] MEDS ORDERED: ATROPINE SULFATE 0.1 MG/ML 10ML SYR IV PRN (09:46)
[2021-11-15] MEDS ORDERED: ONDANSETRON INJ 2 MG/ML 2 ML VIAL IV PRN ×2 (09:46→14:29)
[2021-11-15] MEDS ORDERED: ceFAZolin 2,000 MG/15 ML IV PUSH IV ONE (10:18)
[2021-11-15] MEDS ORDERED: BUPIVACAINE/EPINEPHRINE 0.25% 1:200,000 30 ML VIAL ONE (10:40)
[2021-11-15] MEDS ORDERED: ceFAZolin 330 MG/ML 1 GM VIAL ONE (10:40)
[2021-11-15] MEDS ORDERED: HYDROmorphone INJ 2 MG/ML SYR/VIAL ONE (12:10)
[2021-11-15] MEDS ORDERED: FLOSEAL HEMOSTATIC MATRIX 10ML TOP ONE (12:45)
--- NOTE | 2021-11-15 12:52 | Operative Report ---
Post Operative Report Pre & Post Diagnosis Operation Date: 11/15/21 09:35 Pre-Op Diagnosis: Lumbar spinal stenosis L4-L5 with foraminal disc herniation. Post-Op Diagnosis: Same I identified the patient and participated in the time-out.: Yes Procedure Operation Date: 11/15/21 09:35 Actual Procedures #1 lumbar decompression bilateral medial facetectomies and foraminotomies L3-L4 L4-5. #2 posterior spinal fusion L4-5 per #3 placed posterior instrumentation L4-L5. #4 interbody fusion L4-L5. #5 placement of Spira 15 x 26 mm L4-5. #6 placement locally harvested morselized autograft and posterior gutters. #7 placement of I factor combined with V toss interbody space and posterior gutters. Surgeon Hieu Alcantara, Deicer Finisher Monae Wagner Estimated Blood Loss 250 Findings See Below Patient is 6 foot 3 weighing over 159 kg with a BMI in excess of 43. Patient's body habitus did create significant technical difficulty required deepest retractors longus instruments in order to perform his procedure. This at least 50% increased operative time. Specimens None Indications This is a 51-year-old male who presents with marked decline in status with severe right leg pain and progressive weakness. Subsequently here for urgent emergent decompression fusion. Description of Procedure Patient was met with identified informed consent obtained. Patient was then taken to the operative suite underwent ablation placed in a prone position on the Sherman table on top of the Yash frame. All bony prominences well-padded eyes inspected to ensure no external pressure placed upon the. This point the lumbar spine was prepped and draped in a sterile fashion. Sharp dissection with assistance echocardiogram down to and exposing the lamina transverse processes of L4-L5. From a caudal cephalad fashion complete laminectomy of for partial laminectomy of L3 was performed including bilateral medial facetectomies and foraminotomies addressing severe spinal stenosis. Benefiber massive disc herniation that extended throughout the entire foramen on the right with significant encroachment of the exiting L4 nerve root. It was removed in its entirety. Pedicle screws then placed in L4-5 bilaterally with assistance of fluoroscopy and the properly sized margarita placed. By way of a transfemoral approach and right complete discectomy of L4-5 was performed endplates curetted to subcortical bleeding bone and a 15 x 26 mm spiral cage with I factor tapped in position. The rods were then locked in final position bilaterally. The transverse processes of L4-5 burred to subcortical bleeding bone. I factor combined with V toss and locally harvested morselized autograft was placed in the posterior gutters. 15 round ONEAL drain inserted. The incision was then closed with 1 Vicryl in the fascia 2-0 Vicryl subcutaneously and 4 Monocryl for final skin closure. Steri-Strip sterile dressings placed. Patient waken taken PACU stable condition. Please note spinal cord monitoring was utilized at the procedure no changes noted. Lastly Monae Wagner was present at the entire surgeon while the patient positioning complex portions of the surgery and fascial closure. I attest to the content of the Intraoperative Record and any orders documented therein. Any exceptions are noted below.
--- NOTE | 2021-11-15 13:12 | Fluoroscopy Report ---
FL lumbar spine 2-3V CLINICAL HISTORY: L4-5 DFI TECHNIQUE: 2 views were obtained with the C-arm in the OR with the above procedure. Total fluoroscopy time was 7.5 seconds. Total skin dose was 41.86 mGy. Comparison: Comparison is made to MRI lumbar spine 11/13/2021 FINDINGS/IMPRESSION: Intraoperative images were obtained of L4-L5 decompression and fusion. Please correlate with intraoperative fluoroscopy and operative report. ACT 112: Negative or not required by law. Electronically signed by: Remi Judge M.D. 11/15/2021 1:11 PM
[2021-11-15] MEDS: fentaNYL citrate 100 MCG/2 ML VIAL IV PRN ×3 (13:28→13:38)
--- NOTE | 2021-11-15 13:48 | Electrocardiogram Report ---
Test Reason : Blood Pressure : / mmHG Vent. Rate : 083 BPM Atrial Rate : 083 BPM P-R Int : 154 ms QRS Dur : 096 ms QT Int : 374 ms P-R-T Axes : 015 013 -02 degrees QTc Int : 439 ms Normal sinus rhythm Normal ECG No previous ECGs available Confirmed by Romel Davis ([id number]) on 11/15/2021 1:48:29 PM Referred By: REFERRED SELF Confirmed By:Romel Davis
[2021-11-15] MEDS: dexAMETHasone 4 MG TAB PO SCH (14:13)
--- NOTE | 2021-11-15 14:22 | Anesthesiology Progress Note ---
Date of Service November 15, 2021 Anesthesia Post Procedure Vital Signs Vital Signs: Temp Pulse Pulse Resp BP BP Pulse Ox 11/15/21 14:00 97.0 F L 66 14 158/99 H 92 11/15/21 13:50 63 14 168/92 H 92 11/15/21 13:30 60 15 162/109 H 98 11/15/21 13:40 65 13 169/95 H 97 11/15/21 13:20 65 18 174/91 H 98 11/15/21 13:10 97.0 F L 66 17 174/99 H 95 11/15/21 08:30 97.9 F 69 18 159/99 H 99 11/15/21 08:00 11/15/21 07:26 97.9 F 62 17 157/79 H 97 11/14/21 22:57 98.1 F 75 18 157/92 H 95 11/14/21 15:02 97.7 F 83 18 146/78 H 94 O2 Del Method O2 Flow Rate 11/15/21 14:00 Room Air 11/15/21 13:50 Room Air 11/15/21 13:30 Oxymask 4 11/15/21 13:40 Room Air 11/15/21 13:20 Oxymask 6 11/15/21 13:10 Oxymask 6 11/15/21 08:30 Room Air 11/15/21 08:00 Room Air 11/15/21 07:26 Room Air 11/14/21 22:57 Room Air 11/14/21 15:02 Room Air Pain Intensity Right Hip: Pain Intensity: 3 Transfer of Care Handoff Completed per policy Notes Mental Status: alert / awake / arousable and participated in evaluation Patient Amnestic to Procedure: Yes Nausea / Vomiting: adequately controlled Pain: adequately controlled Airway Patency, RR, SpO2: stable & adequate BP & HR: stable & adequate Hydration State: stable & adequate Anesthetic Complications: no major complications apparent and Pt Satisfied with anesthetic care
[2021-11-15] MEDS ORDERED: bisacodyL 10 MG SUPP PR PRN (14:29)
[2021-11-15] MEDS ORDERED: HYDROmorphone INJ 0.5 MG/0.5 ML SYR IV PRN (14:29)
[2021-11-15] MEDS ORDERED: NALOXONE HCL 0.4 MG/1 ML VIAL/CARP IV PRN (14:29)
[2021-11-15] MEDS ORDERED: ALUMINUM/MAGNESIUM SUSP 30 ML UDC PO PRN (14:29)
[2021-11-15] MEDS ORDERED: PROMETHAZINE HCL 12.5 MG in SODIUM CHLORIDE 0.9% 50 ML IV PRN (14:29)
[2021-11-15] MEDS ORDERED: diphenhydrAMINE Capsule 25 MG CAP PO PRN (14:29)
[2021-11-15] MEDS ORDERED: ACETAMINOPHEN 500 MG TAB PO PRN (14:29)
[2021-11-15] MEDS ORDERED: hydrOXYzine HCl 25 MG TAB PO PRN (14:29)
[2021-11-15] MEDS ORDERED: SOD PHOSPHATE/SOD BIPHOSPHATE ENEMA 132 ML BTL PR PRN (14:29)
[2021-11-15] MEDS ORDERED: ACETAMINOPHEN 1,000 MG/100 ML VIAL IV PRN (14:29)
[2021-11-15] MEDS ORDERED: LORazepam 0.5 MG in SYRINGE 0.25 ML IV PRN (14:29)
[2021-11-15] MEDS ORDERED: METOCLOPRAMIDE HCL INJ 5 MG/ML 2 ML VIAL IV PRN (14:29)
[2021-11-15] MEDS ORDERED: LORazepam 0.5 MG TAB PO PRN (14:29)
[2021-11-15] MEDS ORDERED: MAGNESIUM HYDROXIDE SUSP 30 ML UDC PO PRN (14:29)
[2021-11-15] MEDS ORDERED: traMADol HCL 50 MG TABLET PO PRN (14:29)
[2021-11-15] MEDS ORDERED: FAMOTIDINE 20 MG TAB PO PRN (14:29)
[2021-11-15] MEDS ORDERED: ONDANSETRON 4 MG OD TAB PO PRN (14:29)
[2021-11-15] MEDS: LACTATED RINGER'S 1,000 ML IV SCH (14:44)
[2021-11-15] MEDS: METOPROLOL TARTRATE 25 MG TAB PO SCH (19:45)
[2021-11-15] MEDS: ceFAZolin 2000MG 2,000 MG/15 ML SYR IV SCH (19:47)
[2021-11-15] MEDS: HYDROmorphone INJ 1 MG/ML SYRINGE IV PRN (20:02)
[2021-11-16] MEDS: HYDROmorphone INJ 1 MG/ML SYRINGE IV PRN (00:34)
[2021-11-16] MEDS: LACTATED RINGER'S 1,000 ML IV SCH ×2 (00:35→05:01)
[2021-11-16] MEDS: ceFAZolin 2000MG 2,000 MG/15 ML SYR IV SCH (03:38)
[2021-11-16] MEDS: POLYETHYLENE (MIRALAX) 17 GM PACK PO SCH ×3 (05:41→17:12)
[2021-11-16] MEDS: oxyCODONE HCL IR 5 MG TAB (IMMEDIATE RELEASE) PO PRN ×2 (06:47→17:12)
[2021-11-16 07:40] LABS: Basophils # (auto) 0.02 K/uL (0-0.2); Basophils % (auto) 0.1 %; Hematocrit (blood only) 42.8 % (40.1-51.0); Hemoglobin 14.3 g/dl (14.0-18.0); Immature Granulocytes # (auto) 0.16 K/uL (0.00-0.02); Lymphocytes # (auto) 2.32 K/uL (1.2-3.4); Mean Corpuscular Hemoglobin 30.8 pg (25.0-34.0); Mean Corpuscular Hgb Conc 33.4 g/dL (32.0-36.0); Mean Corpuscular Volume 92.2 fL (80.0-100.0); Mean Platelet Volume 10.7 fL (9.4-12.4); Monocytes # (auto) 1.57 K/uL (0.24-0.82); Monocytes % (auto) 9.5 %; Neutrophils # (auto) 12.48 K/uL (1.4-6.5); Neutrophils % (auto) 75.4 %; Platelet Count 229 K/uL (130-400); RDW Coefficient of Variation 12.9 % (11.5-14.5); RDW Standard Deviation 43.8 fL (36.4-46.3); Red Blood Count 4.64 M/uL (4.63-6.08); White Blood Count 16.55 K/ul (4.8-10.8)
[2021-11-16] MEDS: CYANOCOBALAMIN 1000 MCG/ML VIAL IM SCH (07:42)
[2021-11-16] MEDS: METOPROLOL TARTRATE 25 MG TAB PO SCH (07:42)
[2021-11-16] MEDS: dexAMETHasone 6 MG in SYRINGE 0 ML IV SCH (07:46)
[2021-11-16 08:00] LABS: BUN Creatinine Ratio 26.4 (10-20); Calcium 8.9 mg/dl (8.5-10.1); Creatinine Clr Calc Pharmacy 158.9 ml/min; Est GFR (African American) 114.2 ml/min; Est GFR (Non-African American) 98.5 ml/min; Magnesium 1.9 mg/dl (1.7-2.4); Potassium 4.2 mmol/L (3.5-5.1)
--- NOTE | 2021-11-16 08:25 | Hospitalist Progress Note ---
Date of Service November 16, 2021 Assessment & Plan (1) Lumbar disc herniation with radiculopathy: Plan: Acute right low back pain following twisting/"pop" when picking tomatoes last week MRI with Posterior annular disc bulge with annular fissure and superimposed right foraminal disc protrusion at L4-L5 results in severe right-sided neural foraminal stenosis Ortho consulted POD#1 s/p #1 lumbar decompression bilateral medial facetectomies and foraminotomies L3-L4 L4-5. #2 posterior spinal fusion L4-5 per #3 placed posterior instrumentation L4-L5. #4 interbody fusion L4-L5. #5 placement of Spira 15 x 26 mm L4-5. #6 placement locally harvested morselized autograft and posterior gutters. #7 placement of I factor combined with V toss interbody space and posterior gutters. with Dr Alcantara on 11/15 EBL 250cc, ONEAL output 365 thus far Repeat hgb stable, acute blood loss from surgery Decadron per Dr Alcantara Bowel regimen/pain control, antiemetics prn +BM 11/15 prior to surgery in AM, passing gas SCDs for DVT prophylaxis PT/OT consulted for today Asked RN to arrange for f/u for PCP rx for metoprolol 12.5mg daily and B12 supplementation sent to pharmacy (2) Protrusion of lumbar intervertebral disc: Plan: as above, secondary to twisting/pop when picking tomatoes (3) Intractable back pain: Plan: controlled currently with ordered medications (4) Acute radicular low back pain: (5) Sciatica: (6) Neuropathy: Plan: reported neuropathy checked B12 for completeness --> low normal 287 IM ordered while inpatient, PO at discharge to be continued PT/OT consulted as above (7) Hypertension: Plan: elevations 2nd to pain however appears elevated prior and started metoprolol 12.5mg daily 11/15 BP 158/79, stable in setting of pain Rx for metoprolol 12.5mg daily sent, f/u PCP outpatient Plan continued inpatient stay. Hospitalist service arranging PCP f/u, send rx for metoprolol/B12 and will sign off. Please call with any questions/concerns Admission and Anticipated Discharge Date Admission Date: November 13, 2021 Subjective Evaluated this morning, doing well. Pain primarily pressure but better than yesterday. Was out of bed last evening. Passing gas but no BM. Worried about having BM and twisting. Discussed PT will evaluate and go over maneuvers. Urinating without issue and states filled urinal 3x thus far. Denies fever/chills, chest pain shortness of breath abdominal pain or nausea/vomiting. Discussed elevated BP and metoprolol and will continue upon dc for control. Also discussed B12 levels and replacement and will continue. Asked about PCP, states seen [facility] out the from of the hospital. Will ask private secretary to arrange follow up appointment and recommended routine following. Dr Alcantara entered room Review of Systems Review of Systems: All systems reviewed & are unremarkable except as noted in HPI & below Physical Exam Physical Exam: General: WD/WN obese male sitting in bed, NAD, HEENT: head normocephalic, atraumatic, mmm, trachea midline Resp: CTAB diminished in bases, on room air CV: RRR, no m/r/g, pulses palpable, SCDs in place, calves nontender GI: +BS, +Distended, nontender, no guarding : NO BROCK MSK/Neuro: follows commands, no focal deficit, strength intact b/l LE dorsifle xion/plantar flexion, equal (improved from yesterday) dressing c/d/i, ONEAL drain with bloody drainage ~40cc slightly hypersensitive to palpation RLE lateral matta pulses palpable Psych: Alert but tired, oriented to person/place/event, cooperative Skin: warm, dry Results & Data Results & Data ([facility]) Vital Signs (Past 12 Hours) Vital Signs Temp Pulse Resp BP Pulse Ox O2 Del Method 11/16/21 07:56 36.9 C 73 17 158/79 H 95 Room Air 11/16/21 03:39 36.7 C 75 16 145/76 H 97 Room Air 11/15/21 21:49 36.6 C 67 16 128/80 95 Room Air Laboratory Results 11/16/21 11/16/21 11/15/21 Range/Units 06:52 06:52 07:58 WBC 16.55 H (4.8-10.8) K/ul RBC 4.64 (4.63-6.08) M/uL Hgb 14.3 (14.0-18.0) g/dl Hct 42.8 (40.1-51.0) % MCV 92.2 (80.0-100.0) fL MCH 30.8 (25.0-34.0) pg MCHC 33.4 (32.0-36.0) g/dL RDW Std Deviation 43.8 (36.4-46.3) fL RDW Coeff of Bianca 12.9 (11.5-14.5) % Plt Count 229 (130-400) K/uL MPV 10.7 (9.4-12.4) fL Immature Gran % (Auto) 1.0 % Neut % (Auto) 75.4 % Lymph % (Auto) 14.0 % Pine % (Auto) 9.5 % Eos % (Auto) 0.0 % Baso % (Auto) 0.1 % Neut # (Auto) 12.48 H (1.4-6.5) K/uL Lymph # (Auto) 2.32 (1.2-3.4) K/uL Pine # (Auto) 1.57 H (0.24-0.82) K/uL Eos # (Auto) 0.00 (0-0.50) K/uL Baso # (Auto) 0.02 (0-0.2) K/uL Immature Gran # (Auto) 0.16 H (0.00-0.02) K/uL Sodium 135 L 137 (136-145) mmol/L Potassium 4.2 4.3 (3.5-5.1) mmol/L Chloride 99 101 (98-107) mmol/L Carbon Dioxide 27 29 (21-32) mmol/L Anion Gap 9 7 (3-11) BUN 23 25 H (6-23) mg/dl Creatinine 0.87 0.76 (0.6-1.4) mg/dl Est Cr Clr Drug Dosing 158.9 181.9 ml/min Est GFR ( Amer) 114.2 120.7 ml/min Est GFR (Non-Af Amer) 98.5 104.2 ml/min BUN/Creatinine Ratio 26.4 H 32.9 H (10-20) Glucose 120 H 110 H (70-99(Fasting)) mg/dl Calcium 8.9 9.0 (8.5-10.1) mg/dl Magnesium 1.9 2.1 (1.7-2.4) mg/dl PG Care Time/CCT Total # of Minutes Spent Total Time Spent with Patient: Total time spent is greater than 50% in coordination of care (as documented) at patient's floor/unit and/or counseling patient: Coding Level of Care Code 51514 Subseq Hosp Care Lvl 3 Diagnoses Lumbar disc herniation with radiculopathy M51.16 Protrusion of lumbar intervertebral disc M51.26 Intractable back pain M54.9 Acute radicular low back pain M54.16 Sciatica M54.31 Laterality: right Neuropathy G62.9 Hypertension I10 (1) Sciatica Laterality: right Qualified Code(s): M54.31 - Sciatica, right side
--- NOTE | 2021-11-16 09:44 | Orthopedic Progress Note ---
Date of Service November 16, 2021 Assessment & Plan (1) Lumbar disc herniation with radiculopathy: Plan: At this time continue physical therapy monitor ONEAL output hopefully discharge home in next few days. Admission and Anticipated Discharge Date Admission Date: November 13, 2021 Subjective Back pain is controlled leg symptoms markedly improved Physical Exam Physical Exam: Patient is constricted testing. Appears comfortable. Results & Data ([facility]) Vital Signs (Past 12 Hours) Vital Signs Temp Pulse Resp BP Pulse Ox O2 Del Method 11/16/21 08:00 Room Air 11/16/21 07:56 36.9 C 73 17 158/79 H 95 Room Air 11/16/21 03:39 36.7 C 75 16 145/76 H 97 Room Air 11/15/21 21:49 36.6 C 67 16 128/80 95 Room Air
[2021-11-16] MEDS: DOCUSATE SODIUM/SENNA 50/8.6MG TAB PO SCH (21:20)
[2021-11-17] MEDS: POLYETHYLENE (MIRALAX) 17 GM PACK PO SCH ×3 (00:15→11:40)
[2021-11-17] MEDS: oxyCODONE HCL IR 5 MG TAB (IMMEDIATE RELEASE) PO PRN ×2 (03:22→15:26)
--- NOTE | 2021-11-17 08:18 | Discharge Summary ---
Date of Service November 17, 2021 Admission HPI Per Admitting Provider Shreyas is a 51-year-old male with a history of sciatica who presents with intractable back pain radiating into his right leg. Did have a fall preceding symptoms 1 week ago, and was seen in ER and treated with IM Toradol and Decadron. Progressively worsening symptoms despite ice, heat, Tylenol, and Aleve with pain radiating through his thigh to the top of his foot. 10/10 pain this morning which was some to cry out to his . MRI shows L4-L5 severe neuroforaminal stenosis. Case was reviewed with Dr. Alcantara who recommended admission to medical service, and orthospine follow-up tomorrow morning. 1 week ago was picking tomatoes and twisted wrong and felt a strong 'pop'. No fall, but had progressively worsening back pain since. Couldn't get comfortable. Sunday night went to the ER for pain, treated as above, +oxy/steroids for sciatica from ER. DId notice diminished sensation and progressively worsening strength in his R distal leg, pain limits hip flexion andmotion. 8-10/10 pain in general, not helped much from tylenol, naproxen, oxycodone. Pain goes from back through R leg and him, into the top of his foot with a sharp shooting quality and persistent achy back pain. Peeing normally, no retention/overflow/incontinence BMs normal Diminished sensation in R leg FHX: Denies fhx early LA, strokes, DM Medical History: Reviewed, denies med hx. Medications: Reviewed. Denies prescription meds. Surgical History: Reviewed, no hx surgery Allergies: Reviewed. NKMA. Social History: Occasional snuff use, none in the last 2-3 weeks. Denies Etoh, rec drug use. Code Status: Surrogate DM would be . Full Code. Principal Diagnosis Lumbar disc condition with radiculopathy and neuro deficit Discharge Data Allergies Allergy/AdvReac Type Severity Reaction Status Date / Time No Known Allergies Allergy NKA Unverified 11/13/21 16:25 Consultations 11/13/21 17:58 Consult Orthopedic Surgery Routine Procedures Performed Operation Date: 11/15/21 09:35 Actual Procedures p L4-L5 Decompression and Fusion, Application of Bone Graft, Interbody Placement at L4-L5(Not Applicable) - Hieu Alcantara DO Ordered Studies 11/13/21 11:11 MR lumbar spine wo con Stat 11/15/21 09:35 [place] lumbar spine 2-3V Routine Hospital Course (1) Lumbar disc herniation with radiculopathy: Patient was admitted with severe leg pain and weakness. Diagnosed with foraminal dysplasia underwent surgery. Patient tolerated procedure well was taken to orthopedic for postoperative. Postop day 1 is up and ambulating progressed to postop day 2. Strength improving pain markedly improved. ONEAL drain decreased appropriate. Separately discharged home. Discharge orders instructions from the chart for further review. Total Time Total Time Spent Total Time Spent (In Minutes): 20 minutes Discharge Plan Discharge Items Patient Disposition: Home - Self-Care Reason For Visit: L4-L5 STENOSIS, INTRACT. PAIN Discharge Diagnosis: Lumbar disc herniation with radiculopathy Activity: As commented below Non-emergency contact: Primary Care Provider Call non-emergency contact if: you have any medication questions Follow-up/Referrals: Noemy Howe DO [Resident] - 11/21/21 2:10 pm (APPT IS AT [facility]; [address] [place] [address] [place] [address]) PCP,NO [Physician] - Diet: Regular Addtl Attending Provider Instructions: ACTIVITY RECOMMENDATIONS: SELF CARE INSTRUCTIONS AFTER THORACIC/LUMBAR FUSIONS 1. You may walk to your tolerance. It is good exercise for your legs and back. Expect some back and intermittent leg aches and pains. 2. You may perform "counter-top" level activities (make a sandwich, micky with a project, etc.). 3. No bending or lifting of more than 10 pounds or back twisting of any nature (roll like a log when turning in bed). 4. You may ride in a car for 20-30 minutes at a time. No driving until after your first visit with your doctor. 5. Frequent changes of position and restricting sitting to 30 minutes at a time will help limit the amount of back spasms and stiffness you may experience. 6. You may discontinue the use of ambulatory aids (cane, crutches, etc.) once your strength and confidence allow. 7. You may health inspector food the shower and let water strike your incision when you arrive home at least once daily. Do not take a tub bath, sit in a hot tub or go into a swimming pool until after your first recheck in the office. SPECIAL CARE INSTRUCTIONS: VERY IMPORTANT TO READ AND REVIEW A. Your surgical incision has been closed with a cosmetic suture under the skin that will dissolve in about 6 weeks. In 14 days, you can use a pair of clean scissors and cut the suture that is left outside of the skin at the ends of your incision. 1. The small skin tapes can be removed 7 days after surgery if they have not fallen off by that point. 2. You may keep the wound open to air as much as possible to promote healing after post-op day number 5 unless told otherwise by your doctor. 3. If you think the wound looks like it is becoming infected (redness or worsening drainage) and/or you are experiencing fever, chill or worsening back pain and muscle spasms, contact the office so that we may evaluate you as soon as possible. B. Complications are uncommon, but please contact us if you have any signs or symptoms of: 1. wound infection (fever higher than 102.5 degrees F, redness, separation of wound, drainage, or increasing pain from the incision) 2. blood clots in legs (pain, swelling, redness and warmth in legs) 3. urinary tract infection (fever higher than 102.5 degrees F, burning upon urination or increased frequency of urination) 4. nerve problems (inability to walk on your toes or heels, numbness, loss of bowel or bladder control) 5. any other symptoms that concern you C. Please call the office at if you have any concerns or questions about your operation or recovery. D. No smoking! Smoking drastically decreases the chance of a solid fusion. E. Do not take any anti-inflammatory medications (Indocin, Advil, Motrin, Aspirin, Naprosyn, etc.) as these may inhibit the chance of a solid fusion. Tylenol is okay to take for pain. MANAGING PAIN AFTER SPINAL SURGERY 1. Narcotic medication is intended for short-term use and will be provided for surgical pain. Surgical pain usually lasts for a period of 4-6 weeks. Narcotic medication includes Percocet, Vicodin, Darvocet, Tylenol #3 or Lortab. 2. Longer-term pain is more appropriately treated with non-narcotic medication such as Tylenol ES. 3. Muscle spasm is not appropriately treated with narcotics. Muscle relaxers such as Soma, Flexeril or Skelaxin can be used along with Tylenol ES. 4. Remember that we all live with some "aches and pains". This is not unusual or uncommon after an injury or as we get older. a. Back pain is expected and may include muscle spasms for 4 to 6 weeks after surgery. The pain should gradually improve. If the pain worsens for no apparent reason, please contact the office. b. Intermittent leg pain may also be experienced and should not be concerned about unless it worsens for no apparent reason. If so, please contact the office. 5. We will provide appropriate medication within the normal guidelines of their prescribed use. We will also be very cautious and aware of potential abuse and extended duration of patients' medication needs. a. Pain medications are for your comfort and to assist with sleep and rest so that the tissue can heal. They are not provided in order to return to normal activity and should not be used through the day. To do so or worsening pain at night can result from ongoing tissue damage and developm ent of tolerance to the prescribed medicine. 6. Please allow 2-3 days to process refills. Prescriptions will not be mailed but must be picked up at the office. FOLLOW UP VISIT: Keep your scheduled follow-up appointment. Any questions, please call the office at . Addtl Experimental Technician Provider Instructions: We have checked a B12 level given neuropathy and this was LOW. You have been given a shot while in the hospital and should continue 1000mcg daily. Your blood pressure was also high, which could be from pain, but for prevention given significant elevations, you have been started on metoprolol 12.5mg daily and should continue this at discharge. You should monitor your blood pressures at home and follow up with primary care to monitor your progress. They may increase this if blood pressures are still elevated in follow up. Pending Studies at Discharge: No Stand-Alone Forms: My [facility] [employer], Smoking Cessation Medications and DC Order Prescriptions: New cyanocobalamin (vitamin B-12) 1,000 mcg capsule 1,000 mcg PO DAILY Qty: 30 0RF metoprolol tartrate 25 mg tablet 12.5 mg PO DAILY Qty: 30 0RF tramadol 50 mg tablet 50 mg PO Q6H PRN (Reason: pain, moderate) Qty: 30 0RF oxycodone 5 mg tablet 5 mg PO Q6H PRN (Reason: pain, severe) Qty: 30 0RF Discharge Orders: Discharge Order (Routine); Ordered 11/17/21 Ordered By: Hieu Alcantara Admission Data Admit Date/Time: 11/13/21 16:22 Attending Provider: Hieu Alcantara Admit Provider: Amaury Mendoza Primary Care Provider: Ambrocio Juan Other Providers: Hieu Alcantara
[2021-11-17] MEDS: METOPROLOL TARTRATE 25 MG TAB PO SCH (08:53)
[2021-11-17] MEDS: dexAMETHasone 6 MG in SYRINGE 0 ML IV SCH (08:53)
== END 2021-11-17 16:21 | disposition home or self-care (01) | DRG 454 ==
LOC: ED 09:45 → SUATTDRO 16:22 → 3E 16:22